=== PATIENT | female | born 2000 | race Caucasian/White ===

== ENCOUNTER 2019-04-22 05:49 | Emergency (ER) | payer BC ==
[2019-04-22] MEDS ORDERED: NS 0.9% 1000 ML** 1,000 ML IV ONE (06:20)
--- NOTE | 2019-04-22 06:32 | ED ---
Substance Abuse/Use - HPI Summary HPI Summary: Pt. is a 18 y.o female who presents to the ER for presumed alcohol intoxication. Pt. is a student at [employer]. Per report pt. had 4 alcoholic drinks tonight and became very drowsy. Friend called EMS. Associated sxs of vomiting that has resolved. Pt. sleeping on exam and does not answer questions. Sxs are moderate in severity. No current modifying factors. - History Of Current Complaint Chief Complaint: EDSubstanceAbuse Stated Complaint: 2209 PER EMS Time Seen by Provider: 04/22/19 06:01 Hx Obtained From: Patient, EMS - Allergies/Home Medications Allergies/Adverse Reactions: Allergies Allergy/AdvReac Type Severity Reaction Status Date / Time No Known Allergies Allergy Verified 04/22/19 05:55 Home Medications: Home Medications NK [No Home Medications Reported] 04/22/19 [History Confirmed 04/22/19] PMH/Surg Hx/FS Hx/Imm Hx Previously Healthy: Yes Infectious Disease History: No Infectious Disease History: Denies: Traveled Outside the [place] in Last 30 Days - Family History Known Family History: Positive: Non-Contributory - Social History Occupation: Student Lives: Dormitory/Roommates Alcohol Use: Occasionally Substance Use Type: Reports: None Smoking Status (MU): Never Smoked Tobacco Review of Systems - ROS Summary Review of Systems Summary: Pt. unable to answer ROS questions. All Other Systems Reviewed And Are Negative: No Physical Exam Triage Information Reviewed: Yes Vital Signs On Initial Exam: Initial Vitals Temp Pulse Resp BP Pulse Ox 97.6 F 94 16 132/78 97 04/22/19 05:51 04/22/19 05:51 04/22/19 05:51 04/22/19 05:51 04/22/19 05:51 Vital Signs Reviewed: Yes Appearance: Positive: No Pain Distress - Pt. lying on stretching sleeping in NAD. Will open eyes and mumble when asked questions. Skin: Positive: Warm, Dry Head/Face: Positive: Normal Head/Face Inspection Eyes: Positive: Other: - Pupils slightly dilated biltarally. Neck: Positive: Supple Respiratory/Lung Sounds: Positive: Clear to Auscultation, Breath Sounds Present Cardiovascular: Positive: Normal, RRR Abdomen Description: Positive: Nontender, Soft Neurological: Positive: Normal, CN Intact II-III. Negative: Alert, Oriented to Person Place, Time Psychiatric: Positive: Affect/Mood Appropriate Procedures - Sedation Patient Received Moderate/Deep Sedation with Procedure: No Diagnostics - Vital Signs Vital Signs Temp Pulse Resp BP Pulse Ox 04/22/19 05:51 97.6 F 94 16 132/78 97 - Laboratory Result Diagrams: 04/22/19 07:55 04/22/19 09:28 Lab Statement: Any lab studies that have been ordered have been reviewed, and results considered in the medical decision making process. Course/Dx - Course Course Of Treatment: Pt. presenting with likely ETOH intoxication. Protecting her airway in NAD. Pt. given IV fluids. Labs unremarkable other than ETOH of 180. 0815: Pt. awake and crying she does not have a phone [employer]. She notes she does not know any of her friends numbers. Able to get pt. phone [employer] and friend came to [employer] pt. Pt. ambulatory byself. Dc home with friend. Advised to avoid etoh or drug use. Will return if sxs change or worsen. - Diagnoses Differential Diagnosis/HQI/PQRI: Positive: Alcohol Abuse, Drug Abuse Provider Diagnoses: Alcohol intoxication Discharge ED - Sign-Out/Discharge Documenting (check all that apply): Patient Departure - Discharge Plan Condition: Improved Disposition: HOME Patient Education Materials: Alcohol Intoxication (ED) Referrals: [facility] [Outside] Additional Instructions: Follow up with [facility] if needed Avoid drug and alcohol use Increase clear fluids Return to ER if symptoms change or worsen - Billing Disposition and Condition Condition: IMPROVED Disposition: Home - Attestation Statements Provider Attestation: I was available for consult. This patient was seen by the CASSANDRA. The patient was not presented to, seen by, or examined by me. Dejuan Hemphill MD
[2019-04-22 08:21] LABS: ABS Lymphocytes 1.6 10^3/ul (1.0-4.8); ABS Monocytes 0.4 10^3/ul (0-0.8); ABS Neutrophils 4.9 10^3/ul (1.5-7.7); Eosinophil % 0.4 %; Hematocrit 38 % (35-47); Hemoglobin 12.7 g/dL (12.0-16.0); Lymphocyte % 23.1 %; Mean Corpuscular HGB Conc 34 g/dL (31-36); Mean Corpuscular Hemoglobin 30 pg (27-31); Mean Corpuscular Volume 88 fL (80-97); Nucleated Red Blood Cells % 0.1; Red Blood Count 4.27 10^6 /uL (3.70-4.87); Red Cell Distribution Width 13 % (10-15); White Blood Count 6.9 10^3/uL (3.5-10.8)
[2019-04-22 08:40] LABS: Albumin 4.6 g/dL (3.2-5.2); CO2 Carbon Dioxide 21 mmol/L (22-32); Chloride 107 mmol/L (101-111); Sodium 139 mmol/L (135-145)
[2019-04-22 08:41] LABS: Alcohol 183 mg/dL (<10)
[2019-04-22 08:44] LABS: Urine Benzodiazepine Screen None Detected (None Detect); Urine Opiates Screen None Detected (None Detect)
[2019-04-22 08:46] LABS: ALT 17 U/L (7-52); Albumin/Globulin Ratio 1.5 (1-3); Alkaline Phosphatase 61 U/L (34-104); BUN/Creatinine Ratio 18.3 (8-20); Blood Urea Nitrogen 11 mg/dL (6-24); EGFR African American 155.8 (>60); EGFR Non-African American 128.8 (>60); Glucose 106 mg/dL (70-100); Total Protein 7.6 g/dL (6.4-8.9)
[2019-04-22 08:52] LABS: Anion Gap 11 mmol/L (2-11)
[2019-04-22 09:51] LABS: Potassium Redraw 3.9 mmol/L (3.5-5.0)
[2019-04-22 10:17] VITALS: BP 110/67
== END 2019-04-22 10:19 | disposition home or self-care (01) ==
LOC: ED 05:49
DX: F10.129 Alcohol abuse with intoxication, unspecified (principal)
CPT/HCPCS: 36415; 80053; 80307; 80320; 85025; 99283; G0480